=== PATIENT | male | born 1970 | race Caucasian/White ===

== ENCOUNTER 2019-12-08 20:26 | Inpatient (IN) | payer OTHER ==
[2019-12-08 21:01] VITALS: BMI 25.4
--- NOTE | 2019-12-08 21:52 | HP ---
CIWA Score Nausea/Vomitin (vomiting x 3) Muscle Tremors: 4-Moderate,w/Arms Extend Anxiety: 3 Agitation: 0-Normal Activity Paroxysmal Sweats: 3 Orientation: 0-Oriented Tacttile Disturbances: 0-None Auditory Disturbances: 0-None Visual Disturbances: 0-None Headache: 0-None Present CIWA-Ar Total Score: 13 - Admission Criteria OASAS Guidelines: Admission for Medically Managed Detox: Requires at least one of the followin. CIWA greater than 12 2. Seizures within the past 24 hours 3. Delirium tremens within the past 24 hours 4. Hallucinations within the past 24 hours 5. Acute intervention needed for co occurring medical disorder 6. Acute intervention needed for co occurring psychiatric disorder 7. Severe withdrawal that cannot be handled at a lower level of care (continued vomiting, continued diarrhea, abnormal vital signs) requiring intravenous medication and/or fluids 8. Admission [facility] Chief Complaint: Seeking admission to detox from alcohol Allergies/Adverse Reactions: Allergies Allergy/AdvReac Type Severity Reaction Status Date / Time No Known Allergies Allergy Verified 12/08/19 21:45 History of Present Illness: 49 years old male with a long history of alcohol dependence is seeking admission to detox. This is his first admission to [facility] and he reports that he has never been to inpatient detox before. He reports that he drinks 10 x 18oz. "crazy horse" beer daily. He denies medical history, psych. history and suicidal ideation at this time. He is unemployed, lives alone and denies legal issues. 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 Exam Limitations: No Limitations - Ebola screening Have you traveled outside of the country in the last 21 days: No Have you had contact with anyone from an Ebola affected area: No Have you been sick,other than usual withdrawal symptoms: No Do you have a fever: No - Review of Systems Constitutional: Chills EENT: reports: No Symptoms Reported Respiratory: reports: No Symptoms reported Cardiac: reports: No Symptoms Reported GI: reports: Nausea, Vomiting (x 3), Abdominal cramping : reports: No Symptoms Reported Musculoskeletal: reports: No Symptoms Reported Integumentary: reports: Dryness, Flushing Neuro: reports: Tremors Endocrine: reports: No Symptoms Reported Hematology: reports: No Symptoms Reported Psychiatric: reports: Mood/Affect Appropiate Other Systems: Reviewed and Negative Patient History - Patient Medical History Hx Anemia: No Hx Asthma: No Hx Chronic Obstructive Pulmonary Disease (COPD): No Hx Cancer: No Hx Cardiac Disorders: No Hx Congestive Heart Failure: No Hx Hypertension: No Hx Hypercholesterolemia: No HX Cerebrovascular Accident: No Hx Seizures: No Hx Dementia: No Hx Diabetes: No Hx Gastrointestinal Disorders: No Hx Liver Disease: No Hx Genitourinary Disorders: No Hx Sexually Transmitted Disorders: No Hx Renal Disease (ESRD): No Hx Thyroid Disease: No Hx Human Immunodeficiency Virus (HIV): No (Negtive 2014) Hx Hepatitis C: No Hx Depression: No Hx Suicide Attempt: No (Denies suicidal ideation at this time) Hx Bipolar Disorder: No Hx Schizophrenia: No - Patient Surgical History Past Surgical History: No - PPD History Previous Implant?: Yes (PPD POSITIVE, INH for 9 months) Documented Results: Positive w/o proof Implanted On Prior [facility] Admission?: No PPD to be Administered?: No - Reproductive History Patient is a Female of Child Bearing Age (11 -55 yrs old): No (Male) - Smoking Cessation Smoking history: Never smoked Have you smoked in the past 12 months: No Hx Chewing Tobacco Use: No Initiated information on smoking cessation: No - Substance & Tx. History Hx Alcohol Use: Yes Hx Substance Use: No Substance Use Type: Alcohol Hx Substance Use Treatment: No - Substances abused Alcohol Substance route: Oral Frequency: Daily Amount used: 10 x 18oz. "crazy horse" beer Age of first use: 34 Date of last use: 12/08/19 Admission Physical Exam BHS - Vital Signs Vital Signs: Vital Signs - 24 hr 12/08/19 20:59 Temperature 97.9 F Pulse Rate 73 Respiratory 19 Rate Blood Pressure 120/79 - Physical General Appearance: Yes: Moderate Distress, Tremorous, Sweating, Anxious HEENTM: Yes: Within Normal Limits Respiratory: Yes: Lungs Clear, Normal Breath Sounds, No Respiratory Distress Neck: Yes: Within Normal Limits Breast: Yes: Breast Exam Deferred Cardiology: Yes: Within Normal Limits Abdominal: Yes: Normal Bowel Sounds Genitourinary: Yes: Within Normal Limits Back: Yes: Normal Inspection Musculoskeletal: Yes: Within Normal Limits Extremities: Yes: Tremors Neurological: Yes: Within Normal Limits Integumentary: Yes: Warm Lymphatic: Yes: Within Normal Limits - Diagnostic (1) Opioid dependence with withdrawal Current Visit: Yes Status: Acute (2) PPD positive, treated Current Visit: Yes Status: Chronic Cleared for Admission [facility] - Detox or Rehab [facility] Level of Care: Medically Managed Detox Regimen/Protocol: Librium Claeared for Rehab Admission: No Breathalyzer - Breathalyzer Breathalyzer: 0 Urine Drug Screen - Test Device Lot number: [id number] Expiration date: 11/02/21 - Control Is test valid?: Yes - Results Drug screen NEGATIVE: Yes Inpatient Rehab Admission - Rehab Decision to Admit Inpatient rehab admission?: No
[2019-12-08] MEDS ORDERED: MAGNESIUM HYDROX 2400MG/30ML ORAL SUSPENSION 30 ML CUP PO PRN ×2 (22:09→22:10)
[2019-12-08] MEDS ORDERED: IBUPROFEN 400 MG TABLET (FP) PO PRN ×2 (22:09→22:10)
[2019-12-08] MEDS ORDERED: MAG HYDROX/AL HYDROX/SIMETH 30 ML UNIT-DOSE CUP PO PRN ×2 (22:09→22:10)
[2019-12-08] MEDS ORDERED: chlordiazePOXIDE HCL 25 MG CAPSULE PO PRN ×2 (22:09→22:26)
[2019-12-08] MEDS ORDERED: ACETAMINOPHEN 325 MG TABLET (FP) PO PRN ×4 (22:09→22:10)
[2019-12-08] MEDS ORDERED: ONDANSETRON *ODT* 4 MG TABLET SL PRN ×2 (22:09→22:10)
[2019-12-08] MEDS ORDERED: BISMUTH SUBSALICYLATE 524 MG/30 ML UD PO PRN ×2 (22:09→22:10)
[2019-12-08] MEDS ORDERED: NICOTINE POLACRILEX 2 MG GUM BUC PRN (22:09)
[2019-12-08] MEDS ORDERED: MAGNESIUM CITRATE 300 ML BOTTLE PO PRN ×2 (22:09→22:10)
[2019-12-08] MEDS ORDERED: METHOCARBAMOL 500 MG TABLET PO PRN ×2 (22:09→22:10)
[2019-12-08] MEDS ORDERED: MENTHOL/PHENOL 1 EACH UD MM PRN ×2 (22:09→22:10)
[2019-12-08] MEDS ORDERED: chlordiazePOXIDE HCL 25 MG CAPSULE PO SCH (23:00)
[2019-12-08] MEDS: chlordiazePOXIDE HCL 25 MG CAPSULE PO SCH (23:57)
[2019-12-09] MEDS ORDERED: chlordiazePOXIDE HCL 10 MG CAPSULE PO SCH (05:00)
[2019-12-09] MEDS: chlordiazePOXIDE HCL 25 MG CAPSULE PO SCH ×4 (05:20→22:07)
[2019-12-09] MEDS ORDERED: hydrOXYzine PAMOATE 25 MG CAPSULE (FP) PO SCH (06:00)
[2019-12-09] MEDS ORDERED: NICOTINE 7 MG/24 HOURS TOPICAL PATCH TD SCH (10:00)
[2019-12-09] MEDS ORDERED: PRENATAL VITAMINS W/ FOLIC ACID TABLET (FP) PO SCH (10:00)
[2019-12-09] MEDS: PRENATAL VITAMINS W/ FOLIC ACID TABLET (FP) PO SCH (10:22)
--- NOTE | 2019-12-09 10:23 | PN ---
S CIWA - CIWA Score Nausea/Vomitin-Mild Nausea/No Vomiting Muscle Tremors: 2 Anxiety: 2 Agitation: 2 Paroxysmal Sweats: No Perspiration Orientation: 0-Oriented Tacttile Disturbances: 1-Very Mild Itch/Numbness Auditory Disturbances: 0-None Visual Disturbances: 0-None Headache: 1-Very Mild CIWA-Ar Total Score: 9 BHS Progress Note (SOAP) Subjective: alert,irritable,anxious,interrupted sleep,aching pain Objective: 12/09/19 10:21 Vital Signs Temperature 97.7 F 12/09/19 08:37 Pulse Rate 71 12/09/19 08:37 Respiratory Rate 18 12/09/19 08:37 Blood Pressure 114/81 12/09/19 08:37 O2 Sat by Pulse Oximetry (%) 100 12/09/19 06:23 12/09/19 10:22 labs pending Assessment: 12/09/19 10:22 withdrawal symptom Plan: continue detox emerita aguilar
[2019-12-09 10:30] LABS: HEMATOCRIT 39.6 % (35.4-49); HEMOGLOBIN 12.7 GM/dL (11.7-16.9); MCHC 32.1 g/dl (32.0-35.9); MEAN CELL VOLUME 84.1 fl (80-96); MEAN PLT VOLUME 8.5 fl (7.5-11.1); PLATELET COUNT 230 K/MM3 (134-434); RBC 4.71 M/mm3 (4.00-5.60); RDW 15.1 % (11.9-15.9); WHITE BLOOD COUNT 3.6 K/mm3 (4.0-10.0)
[2019-12-09 10:40] LABS: ALBUMIN 3.6 g/dl (3.4-5.0); BLOOD UREA NITROGEN 7.5 mg/dL (7-18); CALCIUM 8.9 mg/dL (8.5-10.1); CREATININE 0.7 mg/dL (0.55-1.3)
[2019-12-09] MEDS: BACITRACIN 0.9 GM PACKET TP SCH ×2 (13:39→22:08)
--- NOTE | 2019-12-09 16:40 | HP ---
CIWA Score Nausea/Vomitin-Mild Nausea/No Vomiting Muscle Tremors: 2 Anxiety: 2 Agitation: 2 Paroxysmal Sweats: No Perspiration Orientation: 0-Oriented Tacttile Disturbances: 1-Very Mild Itch/Numbness Auditory Disturbances: 0-None Visual Disturbances: 0-None Headache: 1-Very Mild CIWA-Ar Total Score: 9 - Admission Criteria OASAS Guidelines: Admission for Medically Managed Detox: Requires at least one of the followin. CIWA greater than 12 2. Seizures within the past 24 hours 3. Delirium tremens within the past 24 hours 4. Hallucinations within the past 24 hours 5. Acute intervention needed for co occurring medical disorder 6. Acute intervention needed for co occurring psychiatric disorder 7. Severe withdrawal that cannot be handled at a lower level of care (continued vomiting, continued diarrhea, abnormal vital signs) requiring intravenous medication and/or fluids 8. Admitting History and Physical - Smoking History Smoking history: Never smoked Have you smoked in the past 12 months: No - Alcohol/Substance Use Hx Alcohol Use: Yes Admission [facility] Allergies/Adverse Reactions: Allergies Allergy/AdvReac Type Severity Reaction Status Date / Time No Known Allergies Allergy Verified 12/08/19 21:45 - Ebola screening Have you traveled outside of the country in the last 21 days: No Have you had contact with anyone from an Ebola affected area: No Have you been sick,other than usual withdrawal symptoms: No Do you have a fever: No Patient History - Patient Medical History Hx Anemia: No Hx Asthma: No Hx Chronic Obstructive Pulmonary Disease (COPD): No Hx Cancer: No Hx Cardiac Disorders: No Hx Congestive Heart Failure: No Hx Hypertension: No Hx Hypercholesterolemia: No HX Cerebrovascular Accident: No Hx Seizures: No Hx Dementia: No Hx Diabetes: No Hx Gastrointestinal Disorders: No Hx Liver Disease: No Hx Genitourinary Disorders: No Hx Sexually Transmitted Disorders: No Hx Renal Disease (ESRD): No Hx Thyroid Disease: No Hx Human Immunodeficiency Virus (HIV): No (Negtive 2014) Hx Hepatitis C: No Hx Depression: No Hx Suicide Attempt: No (Denies suicidal ideation at this time) Hx Bipolar Disorder: No Hx Schizophrenia: No - Patient Surgical History Past Surgical History: No Hx Neurologic Surgery: No Hx Cataract Extraction: No Hx Cardiac Surgery: No Hx Lung Surgery: No Hx Breast Surgery: No Hx Breast Biopsy: No Hx Abdominal Surgery: No Hx Appendectomy: No Hx Cholecystectomy: No Hx Genitourinary Surgery: No Hx Section: No Hx Orthopedic Surgery: No Anesthesia Reaction: No - PPD History Previous Implant?: Yes (PPD POSITIVE, INH for 9 months) Documented Results: Positive w/o proof Implanted On Prior R Admission?: No - Smoking Cessation Smoking history: Never smoked Have you smoked in the past 12 months: No Hx Chewing Tobacco Use: No Initiated information on smoking cessation: No - Substances abused Alcohol Substance route: Oral Frequency: Daily Amount used: 10 x 18oz. "crazy horse" beer Age of first use: 34 Date of last use: 12/08/19 Admission Physical Exam BHS - Vital Signs Vital Signs: Vital Signs - 24 hr 12/08/19 12/08/19 12/08/19 20:59 22:46 23:07 Temperature 97.9 F 97.9 F 97.9 F Pulse Rate 73 73 73 Respiratory 19 19 19 Rate Blood Pressure 120/79 120/79 120/79 O2 Sat by Pulse Oximetry (%) 12/08/19 12/09/19 12/09/19 23:45 06:23 08:37 Temperature 97.1 F L 97.1 F L 97.7 F Pulse Rate 74 69 71 Respiratory 18 18 18 Rate Blood Pressure 125/78 125/79 114/81 O2 Sat by Pulse 100 100 Oximetry (%) 12/09/19 12:30 Temperature 97.5 F L Pulse Rate 82 Respiratory 18 Rate Blood Pressure 101/78 O2 Sat by Pulse 96 Oximetry (%) - Diagnostic (1) PPD positive, treated Current Visit: Yes Status: Chronic (2) Alcohol dependence with withdrawal, uncomplicated Current Visit: Yes Status: Acute Breathalyzer - Breathalyzer Breathalyzer: 0 Urine Drug Screen - Test Device Lot number: [id number] Expiration date: 11/02/21 - Control Is test valid?: Yes - Results Drug screen NEGATIVE: Yes Inpatient Rehab Admission - Rehab Decision to Admit Inpatient rehab admission?: No
[2019-12-09] MEDS ORDERED: THIAMINE HCL 100 MG TABLET (FP) PO SCH (22:00)
[2019-12-09] MEDS ORDERED: MELATONIN 5 MG TABLETS PO SCH (22:00)
[2019-12-09] MEDS: THIAMINE HCL 100 MG TABLET (FP) PO SCH (22:07)
[2019-12-09] MEDS: MELATONIN 5 MG TABLETS PO SCH (22:08)
[2019-12-10] MEDS ORDERED: chlordiazePOXIDE HCL 25 MG CAPSULE PO SCH ×2 (05:00)
[2019-12-10] MEDS: chlordiazePOXIDE HCL 10 MG CAPSULE PO SCH ×4 (06:09→22:20)
[2019-12-10] MEDS: PRENATAL VITAMINS W/ FOLIC ACID TABLET (FP) PO SCH (10:15)
[2019-12-10] MEDS: BACITRACIN 0.9 GM PACKET TP SCH ×2 (10:17→22:21)
--- NOTE | 2019-12-10 12:39 | EKG ---
Test Reason : Blood Pressure : / mmHG Vent. Rate : 058 BPM Atrial Rate : 058 BPM P-R Int : 174 ms QRS Dur : 118 ms QT Int : 446 ms P-R-T Axes : 063 036 039 degrees QTc Int : 437 ms SINUS BRADYCARDIA NON-SPECIFIC INTRA-VENTRICULAR CONDUCTION DELAY BORDERLINE ECG NO PREVIOUS ECGS AVAILABLE Confirmed by LEESA BARFIELD, JONNA (2014) on 12/10/2019 12:39:46 PM Referred By: Moo Dorado Confirmed By:JONNA LANDERS MD
--- NOTE | 2019-12-10 12:54 | PN ---
S CIWA - CIWA Score Nausea/Vomitin Muscle Tremors: 2 Anxiety: 2 Agitation: 1-Slight > Activity Paroxysmal Sweats: No Perspiration Orientation: 0-Oriented Tacttile Disturbances: 0-None Auditory Disturbances: 0-None Visual Disturbances: 0-None Headache: 1-Very Mild CIWA-Ar Total Score: 8 S Progress Note (SOAP) Subjective: alert,aching pain,irritable,interrupted sleep Objective: 12/10/19 12:48 Vital Signs Temperature 97.1 F L 12/10/19 08:48 Pulse Rate 61 12/10/19 08:48 Respiratory Rate 18 12/10/19 08:48 Blood Pressure 89/63 L 12/10/19 08:48 O2 Sat by Pulse Oximetry (%) 100 12/10/19 06:20 Laboratory Last Values WBC 3.6 K/mm3 (4.0-10.0) L 12/09/19 07:50 RBC 4.71 M/mm3 (4.00-5.60) 12/09/19 07:50 Hgb 12.7 GM/dL (11.7-16.9) 12/09/19 07:50 Hct 39.6 % (35.4-49) 12/09/19 07:50 MCV 84.1 fl (80-96) 12/09/19 07:50 MCH 27.0 pg (25.7-33.7) 12/09/19 07:50 MCHC 32.1 g/dl (32.0-35.9) 12/09/19 07:50 RDW 15.1 % (11.9-15.9) 12/09/19 07:50 Plt Count 230 K/MM3 (134-434) 12/09/19 07:50 MPV 8.5 fl (7.5-11.1) 12/09/19 07:50 Sodium 136 mmol/L (136-145) 12/09/19 07:50 Potassium 4.0 mmol/L (3.5-5.1) 12/09/19 07:50 Chloride 99 mmol/L (98-107) 12/09/19 07:50 Carbon Dioxide 29 mmol/L (21-32) 12/09/19 07:50 Anion Gap 8 MMOL/L (8-16) 12/09/19 07:50 BUN 7.5 mg/dL (7-18) 12/09/19 07:50 Creatinine 0.7 mg/dL (0.55-1.3) 12/09/19 07:50 Est GFR (CKD-EPI)AfAm 127.53 12/09/19 07:50 Est GFR (CKD-EPI)NonAf 110.04 12/09/19 07:50 Random Glucose 92 mg/dL (74-106) 12/09/19 07:50 Calcium 8.9 mg/dL (8.5-10.1) 12/09/19 07:50 Total Bilirubin 1.0 mg/dL (0.2-1) 12/09/19 07:50 AST 148 U/L (15-37) H 12/09/19 07:50 ALT 128 U/L (13-61) H 12/09/19 07:50 Alkaline Phosphatase 130 U/L (45-117) H 12/09/19 07:50 Total Protein 7.0 g/dl (6.4-8.2) 12/09/19 07:50 Albumin 3.6 g/dl (3.4-5.0) 12/09/19 07:50 Syphilis Serology Non-reactive (NONREACTIVE) 12/09/19 07:50 COVID-19 (JULIANNA) Not detected (Not Detected) 12/08/19 11:15 Assessment: 12/10/19 12:49 withdrawal symptom but less 12/10/19 12:50 Plan: continue detox librium regimen,leukopenia and elevation of liver enzymes probably due to alcoholism,advise to stop drinking , follow up with medical provider,for liver enzymes,patient would like to be disc harge in am to see the son who is visiting from [place], may come back for rehab
[2019-12-10] MEDS: THIAMINE HCL 100 MG TABLET (FP) PO SCH (22:19)
[2019-12-10] MEDS: MELATONIN 5 MG TABLETS PO SCH (22:20)
[2019-12-11] MEDS ORDERED: chlordiazePOXIDE HCL 10 MG CAPSULE PO PRN ×2
[2019-12-11] MEDS ORDERED: chlordiazePOXIDE HCL 10 MG CAPSULE PO SCH ×3 (05:00→23:00)
[2019-12-11] MEDS: PRENATAL VITAMINS W/ FOLIC ACID TABLET (FP) PO SCH (09:43)
[2019-12-11] MEDS: BACITRACIN 0.9 GM PACKET TP SCH ×2 (09:43→22:13)
--- NOTE | 2019-12-11 15:06 | PN ---
S CIWA - CIWA Score Nausea/Vomitin Muscle Tremors: 2 Anxiety: 2 Agitation: 2 Paroxysmal Sweats: No Perspiration Orientation: 0-Oriented Tacttile Disturbances: 1-Very Mild Itch/Numbness Auditory Disturbances: 0-None Visual Disturbances: 0-None Headache: 2-Mild CIWA-Ar Total Score: 11 S Progress Note (SOAP) Subjective: alert,irritable,anxious,interrupted sleep,tremor,nausea,aching pain Objective: 12/11/19 15:04 Vital Signs Temperature 97.2 F L 12/11/19 12:42 Pulse Rate 69 12/11/19 12:42 Respiratory Rate 18 12/11/19 12:42 Blood Pressure 92/60 12/11/19 12:42 O2 Sat by Pulse Oximetry (%) 100 12/11/19 12:42 12/11/19 15:04 withdrawal symptom Assessment: 12/11/19 15:05 withdrawal symptom Plan: continue detox librium regimen,tinactin cream for tinea pedis
[2019-12-11] MEDS: TOLNAFTATE 1% CREAM 15 GM TUBE TP SCH ×2 (15:40→22:13)
[2019-12-11] MEDS ORDERED: chlordiazePOXIDE HCL 10 MG CAPSULE PO ONE (17:00)
[2019-12-11] MEDS: MELATONIN 5 MG TABLETS PO SCH (22:13)
[2019-12-11] MEDS: THIAMINE HCL 100 MG TABLET (FP) PO SCH (22:13)
[2019-12-12] MEDS ORDERED: chlordiazePOXIDE HCL 10 MG CAPSULE PO SCH (05:00)
[2019-12-12 09:17] VITALS: BP 116/83; PULSE 90; TEMP 96.9
--- NOTE | 2019-12-12 10:45 | DS ---
[facility] Detox Discharge Summary Admission Date: 12/08/19 Discharge Date: 12/12/19 - History Present History: Alcohol Dependence Additional Comments: Pt is medically cleared and discharged today. Pt completed the detox protocol. Pt is encouraged to follow-up with an outpatient CD program and also to follow- up with his pmd which he verbalized understanding. Pt is AOX3, in no acute respiratory distress, Full ROM, and ambulatory. Pertinent Past History: h/o alcohol use disorder. - Physical Exam Results Vital Signs: Vital Signs Temperature 96.9 F L 12/12/19 08:40 Pulse Rate 90 12/12/19 08:40 Respiratory Rate 18 12/12/19 08:40 Blood Pressure 116/83 12/12/19 08:40 O2 Sat by Pulse Oximetry (%) 99 12/12/19 05:08 Vital Signs 12/12/19 12/12/19 05:08 08:40 Temperature 97.7 F 96.9 F L Pulse Rate 76 90 Respiratory 18 18 Rate Blood Pressure 134/67 116/83 O2 Sat by Pulse 99 Oximetry (%) Laboratory Last Values WBC 3.6 K/mm3 (4.0-10.0) L 12/09/19 07:50 RBC 4.71 M/mm3 (4.00-5.60) 12/09/19 07:50 Hgb 12.7 GM/dL (11.7-16.9) 12/09/19 07:50 Hct 39.6 % (35.4-49) 12/09/19 07:50 MCV 84.1 fl (80-96) 12/09/19 07:50 MCH 27.0 pg (25.7-33.7) 12/09/19 07:50 MCHC 32.1 g/dl (32.0-35.9) 12/09/19 07:50 RDW 15.1 % (11.9-15.9) 12/09/19 07:50 Plt Count 230 K/MM3 (134-434) 12/09/19 07:50 MPV 8.5 fl (7.5-11.1) 12/09/19 07:50 Sodium 136 mmol/L (136-145) 12/09/19 07:50 Potassium 4.0 mmol/L (3.5-5.1) 12/09/19 07:50 Chloride 99 mmol/L (98-107) 12/09/19 07:50 Carbon Dioxide 29 mmol/L (21-32) 12/09/19 07:50 Anion Gap 8 MMOL/L (8-16) 12/09/19 07:50 BUN 7.5 mg/dL (7-18) 12/09/19 07:50 Creatinine 0.7 mg/dL (0.55-1.3) 12/09/19 07:50 Est GFR (CKD-EPI)AfAm 127.53 12/09/19 07:50 Est GFR (CKD-EPI)NonAf 110.04 12/09/19 07:50 Random Glucose 92 mg/dL (74-106) 12/09/19 07:50 Calcium 8.9 mg/dL (8.5-10.1) 12/09/19 07:50 Total Bilirubin 1.0 mg/dL (0.2-1) 12/09/19 07:50 AST 148 U/L (15-37) H 12/09/19 07:50 ALT 128 U/L (13-61) H 12/09/19 07:50 Alkaline Phosphatase 130 U/L (45-117) H 12/09/19 07:50 Total Protein 7.0 g/dl (6.4-8.2) 12/09/19 07:50 Albumin 3.6 g/dl (3.4-5.0) 12/09/19 07:50 Syphilis Serology Non-reactive (NONREACTIVE) 12/09/19 07:50 COVID-19 (JULIANNA) Not detected (Not Detected) 12/08/19 11:15 Labs noted. Pertinent Admission Physical Exam Findings: Withdrawal symptoms. - Treatment Hospital Course: Detox Protocol Followed, Detoxed Safely, Responded well, Discharged Condition Good - Medication Discharge Medications: Ambulatory Orders NK [No Known Home Medication] 12/08/19 - Diagnosis (1) Alcohol use disorder Current Visit: Yes Status: Chronic (2) Alcohol dependence with withdrawal, uncomplicated Current Visit: Yes Status: Acute (3) PPD positive, treated Current Visit: Yes Status: Chronic - AMA Did Patient Leave Against Medical Advice: No BHS CIWA - CIWA Score Nausea/Vomitin-No Nausea/No Vomiting Muscle Tremors: None Anxiety: 1-Mildly Anxious Agitation: 0-Normal Activity Paroxysmal Sweats: 2 Orientation: 0-Oriented Tacttile Disturbances: 0-None Auditory Disturbances: 0-None Visual Disturbances: 0-None Headache: 0-None Present CIWA-Ar Total Score: 3
[2019-12-13] MEDS ORDERED: chlordiazePOXIDE HCL 10 MG CAPSULE PO ONE ×2 (05:00)
== END 2019-12-12 10:16 | disposition home or self-care (01) | DRG 775 ==
LOC: YASAS 20:26 → Y3N 22:30
PROVIDERS: ADMIT Allergy & Immunology; ATTEND Allergy & Immunology
PROC: HZ2ZZZZ Detoxification Services for Substance Abuse Treatment (ICD-10-PCS; principal; 2019-12-08)
DX: F10.230 Alcohol dependence with withdrawal, uncomplicated (principal); B35.3 Tinea pedis; R74.0 Nonspecific elevation of levels of transaminase and lactic acid dehydrogenase [LDH]; D72.819 Decreased white blood cell count, unspecified; R76.11 Nonspecific reaction to tuberculin skin test without active tuberculosis
CPT/HCPCS: 36415; 71046-TC-FY; 80053; 85027; 86780; 93005; 93010; U0003